=== PATIENT | male | born 1950 | race Two or more races ===

== ENCOUNTER 2016-08-10 10:08 | Emergency (ER) | payer MEDICARE, MEDICAID ==
[2016-08-10 10:53] LABS: ABSOLUTE NEUTROPHIL COUNT 4.1 K/mm3 (1.8-7.7); BASO % 0.4 % (0.2-1.0); EOS # 0.1 (0.0-0.5); EOS % 1.4 % (0.9-2.9); HEMATOCRIT 40.3 % (32.0-52.0); HEMOGLOBIN 12.9 gm/l (14.0-18.0); IMM NEUT% 0.4 % (0-1); LYMPH # 0.9 (1.0-4.8); LYMPH % 15.1 % (15-45); MEAN CORPUSCULAR HEMOGLOBIN 29.1 pg (27.0-31.0); MEAN PLATELET VOLUME 12.3 fl (7.4-10.4); MONO # 0.6 (0.0-0.8); MONO % 10.9 % (4-12); NEUT % 71.8 % (43-75); PLATELET COUNT 155 K/mm3 (130-400); RED CELL DISTRIBUTION WIDTH 12.6 % (11.5-14.5)
--- NOTE | 2016-08-10 11:32 | RAD ---
08/10/2016 11:27 AM CHEST - 2 VIEWS History: Chest pain since March 2016. Comparison: Plain films and CTA chest 03/27/2016 Findings: Two views of the chest are obtained. The lungs are clear with out effusion or pneumothorax. The cardiomediastinal silhouette is unremarkable.. The osseous structures are intact.. IMPRESSION: No acute intrathoracic process.
== END 2016-08-10 12:44 | disposition home or self-care (01) ==
LOC: ED 10:08
DX: R07.9 Chest pain, unspecified (principal); R42 Dizziness and giddiness; F17.210 Nicotine dependence, cigarettes, uncomplicated